=== PATIENT | female | born 1940 | race Caucasian/White ===

== ENCOUNTER 2022-07-09 11:57 | Emergency (ER) | payer OTHER ==
[~2022-07-09] VITALS: Ht 162.6 cm; Wt 59.0 kg
[~2022-07-09 11:57] MED LIST: ALBUPOW26 XX; ATOR80TA PO; BECL80AE9 IN; CLOP75TA28 PO; METF-370 PO; PRO20T PO; SERT-160 PO; TIOTCAP IN; TRAM50TA2 PO
[2022-07-09] MEDS ORDERED: ONDANSETRON HCL 4 MG/2 ML VIAL IV ONE (13:15)
[2022-07-09] MEDS ORDERED: SODIUM CHLORIDE 0.9% 1,000 ML IV ONE (13:15)
[2022-07-09 13:30] LABS: Basophils # (auto) 0.1 10 ^3/uL (0-0.2); Basophils % (auto) 0.4 % (0.0-2.0); Eosinophils # (auto) 0 10 ^3/uL (0-0.8); Eosinophils % (auto) 0.1 % (0.0-7.0); Hematocrit 45.1 % (36.0-46.0); Hemoglobin 14.8 g/dL (12.2-16.2); Lymphocytes # (auto) 0.9 10 ^3/uL (0.4-5.4); Lymphocytes % (auto) 4.7 % (10.0-50.0); Mean Corpuscular Hemoglobin 28.9 pg (28.0-32.0); Mean Corpuscular Hgb Conc. 32.8 g/dL (32.0-36.0); Mean Corpuscular Volume 88.1 fL (80.0-100.0); Monocytes % (auto) 5.8 % (0.0-12.0); Neutrophils # (auto) 16.3 10 ^3/uL (1.6-8.6); Red Blood Cells 5.12 10^6/uL (4.0-5.20); White Blood Cell 18.2 10^3/uL (4.4-10.8)
[2022-07-09 13:48] LABS: BUN/Creatinine Ratio 17.7; Calcium 9.5 mg/dL (8.5-10.1); Potassium 4.7 mmol/L (3.5-5.1)
[2022-07-09 13:51] LABS: Bilirubin, Total 0.8 mg/dL (0.2-1.0)
[2022-07-09 17:35] LABS: Urine Bacteria FEW /hpf (None Seen); Urine Blood Negative /uL (Negative); Urine Hyaline Cast FEW /lpf (0 - 2); Urine Mucus FEW (None Seen); Urine Specific Gravity 1.016 (1.001-1.035); Urine WBC 6 /hpf (0 - 5)
[2022-07-09] MEDS ORDERED: IOHEXOL 300 MG/ML 100ML BOTTLE IJ ONE (18:27)
[2022-07-09] MEDS ORDERED: NITROGLYCERIN 0.4 MG SL TAB SL ONE (23:15)
[2022-07-10 00:44] VITALS: BP 128/79
== END 2022-07-10 00:44 | disposition home or self-care (01) ==
LOC: EDBD 11:57 → ER 11:57
DX: R10.13 Epigastric pain (principal); Z88.6 Allergy status to analgesic agent; Z79.899 Other long term (current) drug therapy
CPT/HCPCS: 36415; 71046; 74177; 80053; 81001; 82962; 83690; 85025; 93005; 96361; 96374; 99285; J2405; J7030; Q9967